=== PATIENT | female | born 1975 | race Caucasian/White ===

== ENCOUNTER → 2016-09-30 | Outpatient (CLI) | payer OTHER | END | disposition short-term general hospital (02) | LOC: CLONCO 13:12 | DX: C50.919 Malignant neoplasm of unspecified site of unspecified female breast (principal) ==

== ENCOUNTER → 2016-11-25 | Outpatient (CLI) | payer OTHER | END | disposition short-term general hospital (02) | LOC: CLONCO 06:52 | DX: C50.919 Malignant neoplasm of unspecified site of unspecified female breast (principal); M72.2 Plantar fascial fibromatosis; Z98.890 Other specified postprocedural states; Z17.0 Estrogen receptor positive status [ER+] ==